=== PATIENT | female | born 1990 | race Caucasian/White ===

== ENCOUNTER 2021-03-17 22:44 | Emergency (ER) | payer SELFPAY ==
[2021-03-18] MEDS ORDERED: Lidocaine 1% 10 ML MDV INJECT ONE (01:16)
[2021-03-18] MEDS ORDERED: Sulfamethoxazole/Trimethoprim 800-160 MG Tab PO ONE (01:54)
[2021-03-18] MEDS ORDERED: Ketorolac 15 MG/ML SDV IM ONE (01:54)
[2021-03-18] MEDS ORDERED: ALPRAZolam 0.25 MG Tab PO ONE (01:54)
[2021-03-18] MEDS ORDERED: Sulfamethoxazole/Trimethoprim 800-160 MG Tab ONE (01:57)
[2021-03-18] MEDS ORDERED: Ketorolac 15 MG/ML SDV ONE (01:58)
--- NOTE | 2021-03-18 02:01 | EDM.PDOC ---
ED HPI GENERAL MEDICAL PROBLEM - General Chief Complaint: Genitourinary Problem Stated Complaint: CYST Time Seen by Provider: 03/18/21 01:03 - History of Present Illness INITIAL COMMENTS - FREE TEXT/NARRATIVE: CHIEF COMPLAINT(S): Bartholin cyst HISTORY OF PRESENT ILLNESS: This is a 30-year-old woman with a past medical history of recurrent Bartholin gland cyst who comes to the emergency department with a chief complaint of Bartholin cyst. The patient states that she has an appointment in 4 days with her personal health coach for marsupialization of this Bartholin cyst. She states that she has had removal in the past however it keeps recurring. She states that it is in the same side in same area and states that she is increasing pain in this area. She denies any fever, chills, purulent drainage. She denies any vaginal bleeding or vaginal discharge. She denies any dysuria. She currently rates her pain as 10 out of 10 and describes it as throbbing and sharp. She denies any radiation of the pain. She has not yet tried any pain medications at home. Anytime you touch the area and exacerbates the pain. There are no relieving factors. REVIEW OF SYSTEMS: Constitutional: Denies fever, chills. Eyes: Denies eye pain Ears, Nose, Mouth, & Throat: Denies earache Cardiovascular: Denies chest pain Respiratory: Denies shortness of breath Gastrointestinal: Denies Nausea, vomiting, diarrhea, hematochezia. Genitourinary: Positive for Bartholin cyst. Denies hematuria Skin:Denies a rash MSK: Denies joint pain Neurological: Denies blurred vision Psychiatric: Denies depression PAST MEDICAL HISTORY: As per history of present illness and as reviewed below otherwise noncontributory. SURGICAL HISTORY: As per history of present illness and as reviewed below otherwise noncontributory. SOCIAL HISTORY: As per history of present illness and as reviewed below otherwise noncontributory. FAMILY HISTORY: As per history of present illness and as reviewed below otherwise noncontributory. EXAMINATION OF ORGAN SYSTEMS/BODY AREAS: Constitutional: Blood pressure is 125/77, heart rate 95, respiratory rate 18 with an oxygen saturation 96% on room air. Temperature 36 point General: Young woman who appears to be mildly anxious but otherwise in no acute distress Psychiatric: Appropriate mood and affect. Eyes: No scleral icterus or conjunctival erythema ENMT: Moist mucous membranes. No pharyngeal erythema Cardiovascular: Regular, rate, and rhythm. No gallops, murmurs, or rubs. Bilateral upper extremity pulses symmetric and intact. No peripheral edema. No JVD. Respiratory: Lungs clear to auscultation bilaterally. No wheezes, rales, or rhonchi. Gastrointestinal: Soft, non-tender, non-distended. Normoactive bowel sounds Genitourinary: No suprapubic tenderness there is evidence of Bartholin gland cyst without any surrounding cellulitis or erythema. Musculoskeletal: Normal range of motion. Skin: No lesions or abrasions. Neurological: Alert, GCS 15 MEDICAL DECISION MAKING AND COURSE IN THE ED WITH INTERPRETATION/REVIEW OF DIAGNOSTIC STUDIES: This is a 30-year-old and with a past medical history of recurrent Bartholin cyst who comes to the emergency department with pain associated with Bartholin gland cyst. I did discuss with patient that I could perform an incision and drainage and placement of a Word catheter. The patient states that in the past this is extremely painful for her and she has required some sedation for this time. I did discuss with her at this time that I do not believe it is safe to perform anesthesia to incision and drain a Bartholin gland cyst. I did offer her incision and drainage here or she could wait until her appointment on Saturday with pain management and antibiotics. She elected for pain management and antibiotics. I did discuss strict return precautions with the patient. She was amenable to this plan and had no further questions. DISPOSITION: The patient was discharged home in stable condition. The patient will follow up with gynecology at her scheduled appointment CONDITION: Fair PROCEDURES: None FINAL IMPRESSION(S)/DIAGNOSES: 1. Acute Bartholin gland cyst Austin Zamudio M.D. Bilateral Pelvic Pain Score (Numeric/FACES): 10 - Related Data Allergies Allergy/AdvReac Type Severity Reaction Status Date / Time No Known Allergies Allergy Verified 03/18/21 00:51 Home Meds: Home Meds Hydrocodone/Acetaminophen [HYDROcodone-Acetaminophen 5-325 MG] 1 each PO Q6H PRN #10 tab 03/18/21 [Rx] Naloxone HCl [Narcan] 4 mg NS ONETIME #1 spray 03/18/21 [Rx] Sulfamethoxazole/Trimethoprim [Bactrim Ds Tablet] 1 each PO BID #8 tablet 03/18/21 [Rx] Past Medical History - Past Health History Medical/Surgical History: Denies Medical/Surgical History Social & Family History - Family History Family Medical History: No Pertinent Family History - Tobacco Use Tobacco Use Status *Q: Never Tobacco User - Caffeine Use Caffeine Use: Reports: Coffee, Soda - Recreational Drug Use Recreational Drug Use: No ED ROS GENERAL - Review of Systems Review Of Systems: See Below ED EXAM, GENERAL - Physical Exam Exam: See Below Course - Vital Signs Last Recorded V/S: Last Vital Signs Temp 36.6 C 03/18/21 00:51 Pulse 95 03/18/21 00:51 Resp 18 03/18/21 00:51 BP 125/77 03/18/21 00:51 Pulse Ox 96 03/18/21 00:51 - Orders/Labs/Meds Meds: Medications Discontinued Medications Generic Name Dose Route Start Last Admin Trade Name Freq PRN Reason Stop Dose Admin Alprazolam 0.25 mg 03/18/21 01:54 03/18/21 02:24 Alprazolam 0.25 Mg Tab PO 03/18/21 01:55 Not Given ONETIME ONE Alprazolam 0.25 mg 03/18/21 02:24 03/18/21 02:26 Alprazolam 0.5 Mg Tab PO 03/18/21 02:25 0.25 mg NOW ONE Administration Alprazolam Confirm 03/18/21 02:14 Alprazolam 0.5 Mg Tab Administered 03/18/21 02:15 Dose 0.5 mg .ROUTE .STK-MED ONE Ketorolac Tromethamine 15 mg 03/18/21 01:54 03/18/21 02:19 Ketorolac 15 Mg/Ml Sdv IM 03/18/21 01:55 15 mg ONETIME ONE Administration Ketorolac Tromethamine Confirm 03/18/21 01:58 Ketorolac 15 Mg/Ml Sdv Administered 03/18/21 01:59 Dose 15 mg .ROUTE .STK-MED ONE Lidocaine HCl 10 ml 03/18/21 01:16 03/18/21 01:34 Lidocaine 1% 10 Ml Mdv INJECT 03/18/21 01:17 Not Given ONETIME ONE Lidocaine HCl 10 ml 03/18/21 01:34 03/18/21 02:17 Lidocaine 1% 5 Ml Sdv INJECT 03/18/21 01:35 Not Given ONETIME ONE Lidocaine HCl Confirm 03/18/21 01:38 Lidocaine 1% 5 Ml Sdv Administered 03/18/21 01:39 Dose 10 ml .ROUTE .STK-MED ONE Trimethoprim/Sulfamethoxazole 1 tab 03/18/21 01:54 03/18/21 02:19 Sulfamethoxazole/Trimethoprim 800-160 Mg Tab PO 03/18/21 01:55 1 tab ONETIME ONE Administration Trimethoprim/Sulfamethoxazole Confirm 03/18/21 01:57 Sulfamethoxazole/Trimethoprim 800-160 Mg Tab Administered 03/18/21 01:58 Dose 1 tab .ROUTE .STK-MED ONE Departure - Departure Time of Disposition: 02:00 Disposition: Home, Self-Care 01 Condition: Fair Clinical Impression: Bartholin cyst - Discharge Information *PRESCRIPTION DRUG MONITORING PROGRAM REVIEWED*: No *COPY OF PRESCRIPTION DRUG MONITORING REPORT IN PATIENT PILO: No Prescriptions: Sulfamethoxazole/Trimethoprim [Bactrim Ds Tablet] 1 each PO BID #8 tablet Hydrocodone/Acetaminophen [HYDROcodone-Acetaminophen 5-325 MG] 1 each PO Q6H PRN #10 tab PRN Reason: Pain (Severe 7-10) Naloxone HCl [Narcan] 4 mg NS ONETIME #1 spray Instructions: Bartholin's Cyst, [id number] Referrals: PCP,None [Primary Care Provider] - Forms: ED Department Discharge Additional Instructions: Your evaluated today on an emergent basis. At this time you did elect to not have the Bartholin cyst opened. Given that your appointment is 4 days away I did start you on an antibiotic. Please take this twice a day. In addition to this please follow the pain regimen below. If there is worsening pain, fever or you cannot tolerate it anymore please return to the emergency department so we can open it up. Please use: Tylenol 500mg every 6 hours (DO NOT TAKE MORE THAN 4000mg in 1 day) Ibuprofen 400mg every 6 hours (Take with food as it can cause ulcers, GI upset) Example schedule: 8:00 AM (Tylenol 500mg) 11:00 AM (Ibuprofen 400mg) 2:00 PM (Tylenol 500mg) 5:00 PM (Ibuprofen 400mg) [facility] [address] [place] [address] [facility] [address] [place] [id number] The patient is informed of any results of their evaluation and diagnostic workup and all questions are answered. They are given discharge instructions and return precautions. The patient is stable for discharge. The patient states they understand and agree with the plan and that they will return if their symptoms get worse or if they have any new concerns. The following information is given to patients seen in the emergency department who are being discharged to home. This information is to outline your options for follow-up care. We provide all patients seen in our emergency department with a follow-up referral. The need for follow-up, as well as the timing and circumstances, are variable depending upon the specifics of your emergency department visit. If you don't have a primary care physician on staff, we will provide you with a referral. We always advise you to contact your personal physician following an emergency department visit to inform them of the circumstance of the visit and for follow-up with them and/or the need for any referrals to a consulting specialist. The emergency department will also refer you to a specialist when appropriate. This referral assures that you have the opportunity for follow-up care with a specialist. All of these measure are taken in an effort to provide you with optimal care, which includes your follow-up. Under all circumstances we always encourage you to contact your private physician who remains a resource for coordinating your care. When calling for follow-up care, please make the office aware that this follow-up is from your recent emergency room visit. If for any reason you are refused follow-up, please contact the [facility] Emergency Department at and asked to speak to the emergency department charge nurse.
[2021-03-18] MEDS ORDERED: ALPRAZolam 0.5 MG Tab ONE (02:14)
[2021-03-18] MEDS ORDERED: ALPRAZolam 0.5 MG Tab PO ONE (02:24)
== END 2021-03-18 02:31 | disposition home or self-care (01) ==
LOC: MW.ED 22:44
DX: N75.0 Cyst of Bartholin's gland (principal)
CPT/HCPCS: 96372; 99283; A9270; J1885

== ENCOUNTER 2021-03-23 12:52 | Day surgery (SDC) | payer SELFPAY ==
[~2021-03-23 12:52] MED LIST: Chloroprocaine 10 MG/ML 5 ML Amp ONE; Glycopyrrolate 0.2 MG/ML SDV ONE; Ketorolac 30 MG/ML SDV ONE; Lidocaine 2% 5 ML SDV ONE; Midazolam 1 MG/ML 2 ML SDV ONE; Ondansetron 4 MG/2 ML SDV ONE; Propofol 200 MG/20 ML SDV ONE; Rocuronium Bromide 50 MG/5 ML Syringe ONE; Sugammadex Sodium 200 MG/2 ML VIAL ONE; fentaNYL 100 MCG/2 ML SDV ONE; fentaNYL 250 MCG/5 ML SDV ONE
[2021-03-23] MEDS ORDERED: Lactated Ringers 1,000 ML IV SCH (13:30)
--- NOTE | 2021-03-23 14:31 | PCM.PREANE ---
Preanesthetic Assessment - Anesthesia/Transfusion/Family Hx Anesthesia History: Prior Anesthesia Without Reaction Family History of Anesthesia Reaction: No Transfusion History: No Prior Transfusion(s) - Review of Systems Pulmonary: No Symptoms - Physical Assessment NPO Status Date: 03/23/21 NPO Status Time: 00:05 Vital Signs: Last Vital Signs Temp 35.7 C L 03/23/21 13:00 Pulse 84 03/23/21 13:00 Resp 16 03/23/21 13:00 BP 128/71 03/23/21 13:00 Pulse Ox 96 03/23/21 13:00 Height: 1.75 m Weight: 72.121 kg ASA Class: 1 - Lab Values: Laboratory Last Values Urine HCG, Qual NEGATIVE (NEGATIVE) 03/23/21 13:00 - Allergies Allergies/Adverse Reactions: Allergies Allergy/AdvReac Type Severity Reaction Status Date / Time No Known Allergies Allergy Verified 03/21/21 10:23 - Acknowledgements Anesthesia Type Planned: Spinal Pt an Appropriate Candidate for the Planned Anesthesia: Yes Alternatives and Risks of Anesthesia Discussed w Pt/Guardian: Yes Pt/Guardian Understands and Agrees with Anesthesia Plan: Yes Additional Comments: Patient is asymptomatic COVID positive. Plan SAB. PreAnesthesia Questionnaire - Past Health History Medical/Surgical History: Denies Medical/Surgical History HEENT History: Reports: Other (See Below) Other HEENT History: wears glasses Genitourinary History: Reports: UTI, Recurrent Psychiatric History: Reports: Anxiety, Depression - Past Surgical History Head Surgeries/Procedures: Reports: None GI Surgical History: Reports: Hernia, Abdominal Other GI Surgeries/Procedures: hx umbilical hernia repair Female Surgical History: Reports: Other (See Below) Other Female Surgeries/Procedures: previous surgery for bartholin gland cyst - SUBSTANCE USE Tobacco Use Status *Q: Never Tobacco User - HOME MEDS Home Medications: Home Meds . [No Known Home Meds] 03/21/21 [History] - CURRENT (IN HOUSE) MEDS Current Meds: Current Medications Lactated Ringer's (Ringers, Lactated) 1,000 mls @ 100 mls/hr IV ASDIRECTED JUANA Last Admin: 03/23/21 13:56 Dose: 100 mls/hr Documented by: Discontinued Medications Chloroprocaine HCl (Chloroprocaine 10 Mg/Ml 5 Ml Amp) Confirm Administered Dose 5 ml .ROUTE .STK-MED ONE Stop: 03/23/21 12:51 Fentanyl (Fentanyl 250 Mcg/5 Ml Sdv) Confirm Administered Dose 250 mcg .ROUTE .ST-MED ONE Stop: 03/23/21 07:16 Fentanyl (Fentanyl 100 Mcg/2 Ml Sdv) Confirm Administered Dose 100 mcg .ROUTE .ST-MED ONE Stop: 03/23/21 12:39 Glycopyrrolate (Glycopyrrolate 0.2 Mg/Ml Sdv) Confirm Administered Dose 0.2 mg .ROUTE .ST-MED ONE Stop: 03/23/21 07:16 Ketorolac Tromethamine (Ketorolac 30 Mg/Ml Sdv) Confirm Administered Dose 30 mg .ROUTE .ST-MED ONE Stop: 03/23/21 07:16 Lidocaine (Lidocaine 2% 5 Ml Sdv) Confirm Administered Dose 5 ml .ROUTE .[facility]-MED ONE Stop: 03/23/21 07:16 Midazolam HCl (Midazolam 1 Mg/Ml 2 Ml Sdv) Confirm Administered Dose 2 mg .ROUTE .[facility]-MED ONE Stop: 03/23/21 07:16 Midazolam HCl (Midazolam 1 Mg/Ml 2 Ml Sdv) Confirm Administered Dose 4 mg .ROUTE .ST-MED ONE Stop: 03/23/21 12:39 Ondansetron HCl (Ondansetron 4 Mg/2 Ml Sdv) Confirm Administered Dose 4 mg .ROUTE .ST-MED ONE Stop: 03/23/21 07:16 Propofol (Propofol 200 Mg/20 Ml Sdv) Confirm Administered Dose 200 mg .ROUTE .ST-MED ONE Stop: 03/23/21 07:15 Propofol (Propofol 200 Mg/20 Ml Sdv) Confirm Administered Dose 200 mg .ROUTE .ST-MED ONE Stop: 03/23/21 12:39 Rocuronium [place] (Rocuronium [place] 50 Mg/5 Ml Syringe) Confirm Administered Dose 50 mg .ROUTE .ST-MED ONE Stop: 03/23/21 07:16 Sugammadex Sodium (Sugammadex Sodium 200 Mg/2 Ml Vial) Confirm Administered Dose 200 mg .ROUTE .ST-MED ONE Stop: 03/23/21 07:16
--- NOTE | 2021-03-23 15:03 | PCM.DCSUM1 ---
Discharge Summary - Hospital Course Diagnosis: Stroke: No - Discharge Data Discharge Date: 03/23/21 Discharge Disposition: Home, Self-Care 01 Condition: Good - Referral to Home Health Primary Care Physician: PCP None - Patient Instructions Diet: Usual Diet as Tolerated Activity: As Tolerated Driving: Do Not Drive Showering/Bathing: May Shower Wound/Incision Care: Keep Operative Site/Wound Site Clean and Dry - Discharge Plan Home Medications: Home Meds . [No Known Home Meds] 03/21/21 [History] - Discharge Summary/Plan Comment DC Time >30 min.: Yes Total # of Minutes for Discharge Time: 30 - General Info Date of Service: 03/23/21 Functional Status: Reports: Pain Controlled - Review of Systems General: Reports: No Symptoms HEENT: Reports: No Symptoms Pulmonary: Reports: No Symptoms Cardiovascular: Reports: No Symptoms Gastrointestinal: Reports: No Symptoms Genitourinary: Reports: No Symptoms Musculoskeletal: Reports: No Symptoms Skin: Reports: No Symptoms Neurological: Reports: No Symptoms Psychiatric: Reports: No Symptoms - Patient Data Vitals - Most Recent: Last Vital Signs Temp 36 C L 03/23/21 15:00 Pulse 66 03/23/21 14:54 Resp 12 03/23/21 15:00 BP 106/57 L 03/23/21 15:00 Pulse Ox 95 03/23/21 15:00 Weight - Most Recent: 72.121 kg Lab Results - Last 24 hrs: Laboratory Results - last 24 hr 03/23/21 Range/Units 13:00 Urine HCG, Qual NEGATIVE (NEGATIVE) Med Orders - Current: Current Medications Lactated Ringer's (Ringers, Lactated) 1,000 mls @ 100 mls/hr IV ASDIRECTED JUANA Last Admin: 03/23/21 13:56 Dose: 100 mls/hr Documented by: Discontinued Medications Chloroprocaine HCl (Chloroprocaine 10 Mg/Ml 5 Ml Amp) Confirm Administered Dose 5 ml .ROUTE .STK-MED ONE Stop: 03/23/21 12:51 Fentanyl (Fentanyl 250 Mcg/5 Ml Sdv) Confirm Administered Dose 250 mcg .ROUTE .STK-MED ONE Stop: 03/23/21 07:16 Fentanyl (Fentanyl 100 Mcg/2 Ml Sdv) Confirm Administered Dose 100 mcg .ROUTE .STK-MED ONE Stop: 03/23/21 12:39 Glycopyrrolate (Glycopyrrolate 0.2 Mg/Ml Sdv) Confirm Administered Dose 0.2 mg .ROUTE .STK-MED ONE Stop: 03/23/21 07:16 Ketorolac Tromethamine (Ketorolac 30 Mg/Ml Sdv) Confirm Administered Dose 30 mg .ROUTE .STK-MED ONE Stop: 03/23/21 07:16 Lidocaine (Lidocaine 2% 5 Ml Sdv) Confirm Administered Dose 5 ml .ROUTE .STK-MED ONE Stop: 03/23/21 07:16 Midazolam HCl (Midazolam 1 Mg/Ml 2 Ml Sdv) Confirm Administered Dose 2 mg .ROUTE .STK-MED ONE Stop: 03/23/21 07:16 Midazolam HCl (Midazolam 1 Mg/Ml 2 Ml Sdv) Confirm Administered Dose 4 mg .ROUTE .STK-MED ONE Stop: 03/23/21 12:39 Ondansetron HCl (Ondansetron 4 Mg/2 Ml Sdv) Confirm Administered Dose 4 mg .ROUTE .STK-MED ONE Stop: 03/23/21 07:16 Propofol (Propofol 200 Mg/20 Ml Sdv) Confirm Administered Dose 200 mg .ROUTE .STK-MED ONE Stop: 03/23/21 07:15 Propofol (Propofol 200 Mg/20 Ml Sdv) Confirm Administered Dose 200 mg .ROUTE .STK-MED ONE Stop: 03/23/21 12:39 Rocuronium [place] (Rocuronium [place] 50 Mg/5 Ml Syringe) Confirm Administered Dose 50 mg .ROUTE .STK-MED ONE Stop: 03/23/21 07:16 Sugammadex Sodium (Sugammadex Sodium 200 Mg/2 Ml Vial) Confirm Administered Dose 200 mg .ROUTE .STK-MED ONE Stop: 03/23/21 07:16 - Exam General: Reports: Alert, Oriented HEENT: Reports: Pupils Equal, Pupils Reactive, EOMI, Mucous Membr. Moist/[place]: Reports: Supple Lungs: Reports: Clear to Auscultation, Normal Respiratory Effort Cardiovascular: Reports: Regular Rate, Regular Rhythm GI/Abdominal Exam: Normal Bowel Sounds, Soft, Non-Tender, No Organomegaly, No Distention, No Abnormal Bruit, No Mass, Pelvis Stable (Female) Exam: Normal External Exam, Normal Speculum Exam, Normal Bimanual Exam Rectal (Female) Exam: Normal Exam, Normal Rectal Tone Back Exam: Reports: Normal Inspection, Full Range of Motion Extremities: Normal Inspection, Normal Range of Motion, Non-Tender, No Pedal Edema, Normal Capillary Refill Skin: Reports: Warm, Dry, Intact Wound/Incisions: Reports: Healing Well Neurological: Reports: No New Focal Deficit Psy/Mental Status: Reports: Alert, Normal Affect, Normal Mood
--- NOTE | 2021-03-23 15:05 | PCM.OPNOTE ---
- General Post-Op/Procedure Note Date of Surgery/Procedure: 03/23/21 Operative Procedure(s): Cxcicion of R.bartholin Cyst Pre Op Diagnosis: Bartholin cyst Post-Op Diagnosis: Same Anesthesia Technique: Spinal Primary Surgeon: Ernesto Valdivia EBL in mLs: 150 Complications: None Condition: Good
[2021-03-23] MEDS ORDERED: Ketorolac 30 MG/ML SDV IVPUSH ONE (15:08)
[2021-03-23] MEDS ORDERED: Ondansetron 4 MG/2 ML SDV IVPUSH PRN (15:08)
[2021-03-23] MEDS ORDERED: Acetaminophen 1,000 MG in Premix Bag 1 BAG IV PRN (15:08)
[2021-03-23] MEDS ORDERED: fentaNYL 100 MCG/2 ML SDV IVPUSH PRN (15:08)
--- NOTE | 2021-03-23 15:09 | PCM.POSTAN ---
POST ANESTHESIA ASSESSMENT - MENTAL STATUS Mental Status: Alert - VITAL SIGNS Vital Signs: Last Vital Signs Temp 36 C L 03/23/21 15:00 Pulse 56 L 03/23/21 15:05 Resp 10 L 03/23/21 15:05 BP 102/58 L 03/23/21 15:05 Pulse Ox 96 03/23/21 15:05 - RESPIRATORY Respiratory Status: Respiratory Rate WNL - CARDIOVASCULAR CV Status: Pulse Rate WNL - GASTROINTESTINAL GI Status: No Symptoms - POST OP HYDRATION Hydration Status: Adequate & Stable
--- NOTE | 2021-03-23 16:22 | PCM48HPAN ---
Post Anesthesia Note - EVALUATION WITHIN 48HRS OF ANESTHETIC Vital Signs in Normal Range: Yes Patient Participated in Evaluation: Yes Respiratory Function Stable: Yes Airway Patent: Yes Cardiovascular Function Stable: Yes Hydration Status Stable: Yes Pain Control Satisfactory: Yes Nausea and Vomiting Control Satisfactory: Yes Mental Status Recovered: Yes Vital Signs: Last Vital Signs Temp 36.1 C 03/23/21 15:21 Pulse 68 03/23/21 15:47 Resp 12 03/23/21 15:47 BP 114/66 03/23/21 15:47 Pulse Ox 99 03/23/21 15:47
--- NOTE | 2021-03-24 08:13 | OR ---
SURGEON: Ernesto Valdivia MD DATE OF PROCEDURE: PREOPERATIVE DIAGNOSIS: Recurrent right Bartholin's cyst. POSTOPERATIVE DIAGNOSIS: Recurrent right Bartholin's cyst. OPERATION PERFORMED: Excision of the right Bartholin's cyst with marsupialization. PRIMARY SURGEON: Ernesto Valdivia MD ADMINISTRATOR SOCIAL WELFARE: OR pérez. ANESTHESIA: Spinal. ESTIMATED BLOOD LOSS: 150 mL. COMPLICATIONS: None. INDICATION FOR SURGERY: The patient does have a recurrent right Bartholin's cyst abscess three times, had to be I and D'd in the emergency room. This time, she had at the beginning of an abscess. The patient came to the office and the decision made to excise the right Bartholin's gland with marsupialization. PROCEDURE: Patient was brought to the OR, properly identified, and after adequate level of spinal anesthesia, patient placed in lithotomy position, prepped and draped in sterile fashion as usual. Attention was paid to the right labia and the Bartholin's gland was easily palpated. From the inside of the labia, an elliptical incision was done with a 15-blade and that was carried downward until the Bartholin's gland was identified, and then the Bartholin's gland was undermined and excised totally. The base of the Bartholin's cyst excision is repaired with interrupted 3-0 Vicryl for hemostasis and then the edge of the incision was marsupialized with 3-0 Vicryl interrupted suture. After that, packing of the area was done and the procedure was ended. Instrument and sponge count was correct and complete. The patient tolerated the procedure well and went to recovery room in stable general condition. DAKOTA / NIHARIKA /[id number]
== END 2021-03-23 16:50 | disposition home or self-care (01) ==
LOC: MW.SDS 12:52
PROVIDERS: ATTEND Obstetrics & Gynecology
DX: N75.0 Cyst of Bartholin's gland (principal); F41.9 Anxiety disorder, unspecified; F32.9 Major depressive disorder, single episode, unspecified
CPT/HCPCS: 56740; 81025; J0131; J1885; J2250; J2400; J2704; J7120; 00940; J2405; J3010; J3490

== ENCOUNTER 2024-04-06 14:41 | Emergency (ER) | payer BC | END 2024-04-06 19:11 | disposition home or self-care (01) | LOC: MW.ED 14:41 | DX: R05.9 Cough, unspecified (principal); Z75.8 Other problems related to medical facilities and other health care | CPT/HCPCS: 99283 ==